=== PATIENT | female | born 1985 | race Caucasian/White ===

== ENCOUNTER → 2017-01-18 | Day surgery (SDC) | payer OTHER ==
[2017-01-18 09:35] LABS: HCT 41.8 % (37.0-47.0); HGB 14.1 g/dl (12.5-16.0); MCH 28.2 pg (25.0-31.0); MCHC 33.7 g/dL (32.0-36.0); MCV 83.6 fL (78.0-100.0); MPV 10.8 fL (6.0-9.5); RDW 13.4 % (11.5-14.0); WBC 6.9 K/uL (4.0-10.5)
[2017-01-18 09:56] LABS: ALBUMIN 4.2 g/dL (3.5-5.0); BILIRUBIN - TOTAL 0.4 mg/dL (0.1-1.0); CREATININE 0.8 mg/dL (0.5-1.0); POTASSIUM 3.9 mmol/L (3.5-5.1); TOTAL PROTEIN 7.2 g/dL (6.4-8.3)
== END | disposition home or self-care (01) ==
LOC: FAS 08:03
PROVIDERS: Surgery
DX: K80.10 Calculus of gallbladder with chronic cholecystitis without obstruction (principal); F41.9 Anxiety disorder, unspecified; F17.200 Nicotine dependence, unspecified, uncomplicated; F31.9 Bipolar disorder, unspecified; Z88.2 Allergy status to sulfonamides
CPT/HCPCS: 36415; 80053; 84703; 88304; 93005; J1170; J2270; J2405; J2704; J2710; J3010